=== PATIENT | female | born 1940 | race Caucasian/White ===

== ENCOUNTER → 2016-02-13 | Outpatient (REF) | payer MEDICARE ==
[~2016-02-13] MED LIST: ASPI325T PO; CALC1TAB21 PO; COLA100C PO; CORE25TA PO; CORE6.25 PO; CYAN1000VL IM; EFFE37.527 PO; FOSI40TA PO; GLIM4TAB PO; HYDR62TA PO; INSUDET SC; INSUH10VL SC; K-TA10TA2 PO; LIPI80TA PO; METF-414 PO; MULT1TAB8 PO; VITA200016 PO; VITA500C24 PO
[2016-02-13 12:59] LABS: ANION GAP 10 MEQ/L (8-16); BLOOD UREA NITROGEN 14 MG/DL (7-18); CALCIUM LEVEL 8.4 MG/DL (8.8-10.2); CARBON DIOXIDE LEVEL 28 MEQ/L (21-32); CHLORIDE LEVEL 104 MEQ/L (98-107); CREATININE FOR GFR 0.96 MG/DL (0.55-1.02); GLOMERULAR FILTRATION RATE > 60.0 (>39); GLUCOSE, FASTING 227 MG/DL (83-110); POTASSIUM SERUM 4.1 MEQ/L (3.5-5.1); SODIUM LEVEL 142 MEQ/L (136-145)
== END ==
LOC: M LABDRAW1 11:39
PROVIDERS: ATTEND Physician Assistant
DX: N17.9 Acute kidney failure, unspecified (principal); T50.8X5D Adverse effect of diagnostic agents, subsequent encounter
CPT/HCPCS: 36415; 80048; G0463

== ENCOUNTER → 2016-02-27 | Outpatient (REF) | payer MEDICARE ==
[2016-02-27 18:50] LABS: MEAN CORPUSCULAR HEMOGLOBIN 31.1 pg (27.0-33.0); MEAN CORPUSCULAR HGB CONC 33.8 g/dl (32.0-36.5); MEAN CORPUSCULAR VOLUME 92.1 fl (80.0-96.0); WHITE BLOOD COUNT 6.2 K/mm3 (4.0-10.0)
[2016-02-27 19:03] LABS: ALBUMIN 3.4 GM/DL (3.2-5.2); ALBUMIN/GLOBULIN RATIO 0.97 (1.00-1.93); BILIRUBIN,TOTAL 0.5 MG/DL (0.2-1.0); CALCIUM LEVEL 8.6 MG/DL (8.8-10.2); CREATININE FOR GFR 1.05 MG/DL (0.55-1.02); FREE T4 1.13 NG/DL (0.76-1.46); GLOMERULAR FILTRATION RATE 54.5 (>39); POTASSIUM SERUM 3.9 MEQ/L (3.5-5.1); TOTAL PROTEIN 6.9 GM/DL (6.4-8.2)
== END ==
LOC: M SFHCADAM 11:43
PROVIDERS: ATTEND Family Medicine
DX: I51.81 Takotsubo syndrome (principal); F32.9 Major depressive disorder, single episode, unspecified

== ENCOUNTER → 2016-02-27 | Outpatient (CLI) | payer MEDICARE ==
--- NOTE | 2016-02-27 13:32 | REP ---
CHEST X-RAY: Two views. HISTORY: Takotsubo cardiomyopathy. Comparison chest x-ray January 20, 2016. FINDINGS: The patient is status post aortic valve replacement. Cardiac silhouette is somewhat enlarged with cardiothoracic ratio 15.6 cm over 29.3 cm. Pulmonary vasculature is not increased. There is very slight blunting of the right lateral pleural angle page. No infiltrate is seen. Pulmonary vasculature is not increased. There are some degenerative changes in the thoracic spine. IMPRESSION: Mild cardiomegaly. The patient status post aortic valve replacement. Slight blunting of the right lateral pleural angle. Signed by Pantera Palomares MD 02/27/2016 02:34 P
== END | disposition home or self-care (01) ==
LOC: M ADAMS 11:52
PROVIDERS: ATTEND Family Medicine
DX: I51.81 Takotsubo syndrome (principal); I51.7 Cardiomegaly; Z95.4 Presence of other heart-valve replacement; Z98.890 Other specified postprocedural states; F32.9 Major depressive disorder, single episode, unspecified
CPT/HCPCS: 71020; 80053; 84439; 84443; 85027; G0463

== ENCOUNTER → 2016-06-03 | Outpatient (REF) | payer MEDICARE ==
[~2016-06-03] MED LIST changes: -COLA100C PO; +COLA100C3 PO; +HYDR25TA6 PO; -HYDR62TA PO
[2016-06-03 12:59] LABS: ANION GAP 7 MEQ/L (8-16); BLOOD UREA NITROGEN 17 MG/DL (7-18); CALCIUM LEVEL 8.3 MG/DL (8.8-10.2); CARBON DIOXIDE LEVEL 34 MEQ/L (21-32); CHLORIDE LEVEL 102 MEQ/L (98-107); CREATININE FOR GFR 0.86 MG/DL (0.55-1.02); GLOMERULAR FILTRATION RATE > 60.0 (>39); GLUCOSE, FASTING 149 MG/DL (83-110); POTASSIUM SERUM 3.8 MEQ/L (3.5-5.1); SODIUM LEVEL 143 MEQ/L (136-145)
== END ==
LOC: M LABDRAW1 12:13
PROVIDERS: ATTEND Family Medicine
DX: E11.49 Type 2 diabetes mellitus with other diabetic neurological complication (principal); I11.9 Hypertensive heart disease without heart failure

== ENCOUNTER → 2016-11-06 | Outpatient (REF) | payer MEDICARE ==
[~2016-11-06] MED LIST changes: -COLA100C3 PO; +COLA100C5 PO
[2016-11-06 20:16] LABS: ALBUMIN 3.4 GM/DL (3.2-5.2); BILIRUBIN,TOTAL 0.5 MG/DL (0.2-1.0); CREATININE FOR GFR 1.05 MG/DL (0.55-1.02); GLOMERULAR FILTRATION RATE 54.4 (>39); POTASSIUM SERUM 3.9 MEQ/L (3.5-5.1); TOTAL PROTEIN 6.8 GM/DL (6.4-8.2)
[2016-11-06 20:40] LABS: MEAN CORPUSCULAR HEMOGLOBIN 29.8 pg (27.0-33.0); MEAN CORPUSCULAR HGB CONC 32.6 g/dl (32.0-36.5); MEAN CORPUSCULAR VOLUME 91.7 fl (80.0-96.0); RED CELL DISTRIBUTION WIDTH 13.2 % (11.5-14.5)
== END ==
LOC: M SFHCADAM 15:25
PROVIDERS: ATTEND Family Medicine
DX: F32.9 Major depressive disorder, single episode, unspecified (principal); I51.81 Takotsubo syndrome; E11.49 Type 2 diabetes mellitus with other diabetic neurological complication; E78.2 Mixed hyperlipidemia; E55.9 Vitamin D deficiency, unspecified; D51.9 Vitamin B12 deficiency anemia, unspecified

== ENCOUNTER → 2017-04-01 | Outpatient (REF) | payer MEDICARE ==
[2017-04-01 20:19] LABS: HEMATOCRIT 36.5 % (36.0-47.0); HEMOGLOBIN 12.1 g/dl (12.0-16.0); MEAN CORPUSCULAR HEMOGLOBIN 29.5 pg (27.0-33.0); MEAN CORPUSCULAR HGB CONC 33.2 g/dl (32.0-36.5); PLATELET COUNT, AUTOMATED 258 10^3/uL (150-450); RED CELL DISTRIBUTION WIDTH 12.8 % (11.5-14.5); WHITE BLOOD COUNT 6.7 10^3/uL (4.0-10.0)
[2017-04-01 20:28] LABS: APPEARANCE, URINE MANUAL CLEAR (CLEAR); COLOR, URINE MANUAL YELLOW (YELLOW)
[2017-04-01 20:29] LABS: BILIRUBIN, URINE MANUAL NEGATIVE (NEGATIVE); BLOOD URINE MANUAL NEGATIVE (NEGATIVE); GLUCOSE, URINE (UA) MANUAL NEGATIVE (NEGATIVE); KETONE, URINE MANUAL NEGATIVE (NEGATIVE); LEUKOCYTE ESTERASE, URINE MAN POSITIVE (NEGATIVE); MICROSCOPIC INDICATED? MAN YES (NO); NITRITE, URINE MANUAL NEGATIVE (NEGATIVE); PH,URINE MAN 5.5 UNITS (5.0 - 7.0); PROTEIN, URINE MANUAL 3+ mg/dL (NEGATIVE); UROBILINOGEN, URINE MANUAL NORMAL (NORMAL)
[2017-04-01 20:30] LABS: ALBUMIN 3.6 GM/DL (3.2-5.2); ALBUMIN/GLOBULIN RATIO 1.03 (1.00-1.93); ALKALINE PHOSPHATASE 70 U/L (45-117); ALT/SGPT 18 U/L (12-78); ANION GAP 8 MEQ/L (8-16); AST/SGOT 16 U/L (7-37); BILIRUBIN,TOTAL 0.5 MG/DL (0.2-1.0); BLOOD UREA NITROGEN 21 MG/DL (7-18); CALCIUM LEVEL 9.3 MG/DL (8.8-10.2); CARBON DIOXIDE LEVEL 30 MEQ/L (21-32); CHLORIDE LEVEL 102 MEQ/L (98-107); CREATININE FOR GFR 1.09 MG/DL (0.55-1.30); GLOMERULAR FILTRATION RATE 52.1 (>39); GLUCOSE, FASTING 215 MG/DL (70-100); POTASSIUM SERUM 3.6 MEQ/L (3.5-5.1); SODIUM LEVEL 140 MEQ/L (136-145); TOTAL PROTEIN 7.1 GM/DL (6.4-8.2)
[2017-04-01 21:03] LABS: BACTERIA, URINE SMALL AMOUNT; RENAL EPITHELIAL CELLS, URINE SMALL AMOUNT /hpf; SQUAMOUS EPITHELIAL CELL URINE LARGE AMOUNT /hpf (SMALL AMT); TRANSITIONAL EPI CELLS, URINE LARGE AMOUNT /hpf; WBC, URINE 15-20 /hpf (0-3)
[2017-04-01 21:04] LABS: HYALINE CAST, URINE 0-1 /lpf (0-1); MICROSCOPIC EXAM PERFORMED; MUCUS, URINE SMALL AMOUNT (NEGATIVE)
== END ==
LOC: M SFHCADAM 16:58
DX: I11.9 Hypertensive heart disease without heart failure (principal); N18.3 Chronic kidney disease, stage 3 (moderate)
CPT/HCPCS: 80053

== ENCOUNTER → 2017-04-15 | Outpatient (CLI) | payer MEDICARE | LOC: M RAD 08:23 | DX: N18.3 Chronic kidney disease, stage 3 (moderate) (principal) | CPT/HCPCS: 76775 ==